=== PATIENT | female | born 1965 | race Caucasian/White ===

== ENCOUNTER 2019-02-03 05:42 | Day surgery (SDC) | payer BC ==
[~2019-02-03] VITALS: Ht 167.6 cm; Wt 67.4 kg
[2019-02-03 06:32] VITALS: Ht 167.6 cm; Wt 67.4 kg
[2019-02-03] MEDS ORDERED: SERT25TA PO (06:39)
[2019-02-03 07:30] VITALS: BP 112/74; PULSE 71; RESP 20
[2019-02-03] MEDS ORDERED: FENTAnyl 50 MCG/ML VIAL ONE (08:02)
[2019-02-03] MEDS ORDERED: MIDAZOLAM 1 MG/ML 2 ML INJ ONE ×2 (08:02)
[2019-02-03 08:21] VITALS: BP 97/64; RESP 20
== END 2019-02-03 11:00 | disposition home or self-care (01) ==
LOC: GIL 05:42
PROVIDERS: ATTEND Internal Medicine Gastroenterology
DX: K29.50 Unspecified chronic gastritis without bleeding (principal)
CPT/HCPCS: 43239; 88305; 88312; J2250; J3010; Z7610

== ENCOUNTER 2019-05-09 07:24 | Day surgery (SDC) | payer BC ==
[~2019-05-09] VITALS: Ht 165.1 cm; Wt 66.0 kg
[~2019-05-09 07:24] MED LIST: SERT25TA PO
[2019-05-09 08:32] VITALS: Ht 165.1 cm; Wt 66.0 kg
[2019-05-09 08:48] VITALS: BP 109/68; PULSE 71; RESP 18
[2019-05-09] MEDS ORDERED: FENTAnyl 50 MCG/ML VIAL ONE (09:42)
[2019-05-09] MEDS ORDERED: MIDAZOLAM 1 MG/ML 2 ML INJ ONE ×3 (09:42)
[2019-05-09 10:10] VITALS: BP 101/71; RESP 15
== END 2019-05-09 09:56 | disposition home or self-care (01) ==
LOC: GIL 07:24
PROVIDERS: ATTEND Internal Medicine Gastroenterology
DX: Z12.11 Encounter for screening for malignant neoplasm of colon (principal); D12.5 Benign neoplasm of sigmoid colon; K64.8 Other hemorrhoids
CPT/HCPCS: 45380; 88305; J2250; J3010; Z7610